=== PATIENT | female | born 1995 | race Hispanic/Latino ===

== ENCOUNTER 2017-02-18 11:00 | Emergency (ER) | payer OTHER ==
[~2017-02-18] VITALS: Ht 160 cm; Wt 109.0 kg
[~2017-02-18 11:00] MED LIST: CEPHALEXIN500 MG PO; CLINDAMAX1 % EX; DENIES CURRENT MEDS; IBUPROFEN600 MG PO; KEFLEX500 M1 PO; LEVOTHYROXIN50 MCG PO; NAPROSYN500 MG PO; NO; NO HOME MEDS PER MOM; OB COMPLETE/DHA PO; PATADAY OU; RETIN-A MICR0.04 % EX; RETIN-A MICR0.04 % TOP; ROBITUSSIN AC10 ML PO; SPRINTEC 2828 DAY PO; ZOFRAN ODT4 MG PO; ZOFRAN4 MG/TAB PO; [UNRECOGNIZED DRUG - CODE] TOP
[2017-02-18 11:47] LABS: HEMATOCRIT 41.2 % (37.0-47.0); HEMOGLOBIN 12.9 g/dl (12.0-16.0); IMMATURE GRANULOCYTES 0.5 % (0.0-1.0); MEAN CORPUSCULAR HGB 24.1 pG CALC (26.0-32.0); MEAN CORPUSCULAR HGB CONC 31.3 g/L CALC (32.0-36.0); NEUT# 11.37 thou/uL (2.00-7.15); RED BLOOD COUNT 5.35 mill/uL (4.20-5.60)
[2017-02-18 11:48] LABS: URINE BILIRUBIN - DIPSTICK NEGATIVE (NEGATIVE); URINE BLOOD DIPSTICK NEGATIVE (NEGATIVE); URINE CLARITY CLEAR; URINE COLOR YELLOW; URINE GLUCOSE - DIPSTICK NEGATIVE (NEGATIVE); URINE KETONE NEGATIVE (NEGATIVE); URINE LEUK ESTERASE TRACE (NEGATIVE); URINE NITRITE - DIPSTICK NEGATIVE (Negative); URINE PH 5.5 (4.5-8.0); URINE PROTEIN - DIPSTICK NEGATIVE (NEG-TRACE); URINE UROBILINOGEN - DIPSTICK 0.2 E.U./dL (0.2)
[2017-02-18 11:57] LABS: ALBUMIN 4.6 g/dL (3.2-5.0); ALKALINE PHOSPHATASE 86 u/l (38-126); AMYLASE 40 u/l (30-110); ANION GAP 16 (6-22 (CALC)); BILIRUBIN, TOTAL 0.5 mg/dL (0.0-1.4); BUN 10 mg/dL (7-17); BUN/CREATININE RATIO 17 (12-20 (CALC)); CALCIUM 9.6 mg/dL (8.4-10.2); CARBON DIOXIDE 25 mmol/l (22-30); CHLORIDE 103 mmol/l (95-108); CREATININE 0.6 mg/dL (0.5-1.0); GFR > 60 ML/MIN (>=60 (CALC)); GFR FOR AFR.AMER. > 60 ML/MIN (>=60 (CALC)); GLUCOSE 87 mg/dL (65-105); LIPASE 73 u/l (23-300); POTASSIUM 4.1 mmol/l (3.5-5.1); SGOT/AST 26 u/l (14-36); SGPT/ALT 46 u/l (9-52); SODIUM 141 mmol/l (137-146); TOTAL PROTEIN 8.3 g/dL (6.3-8.2)
[2017-02-18] MEDS ORDERED: BACTRIM DS1 TAB PO (16:27)
[2017-02-18] MEDS ORDERED: MOTRIN800 MG PO (16:27)
[2017-02-18] MEDS ORDERED: DOXYCYCL HYC100 MG PO (16:28)
[2017-02-18 16:45] VITALS: BP 106/74
== END 2017-02-18 16:45 | disposition home or self-care (01) | DRG 392 ==
LOC: ED 11:00
PROVIDERS: Emergency Medicine
DX: R10.30 Lower abdominal pain, unspecified (principal); R50.9 Fever, unspecified; R19.7 Diarrhea, unspecified; R11.0 Nausea

== ENCOUNTER 2017-07-10 12:43 | Emergency (ER) | payer OTHER ==
[~2017-07-10] VITALS: Ht 160 cm; Wt 118.0 kg
[~2017-07-10 12:43] MED LIST changes: +BACTRIM DS1 TAB PO; +DOXYCYCL HYC100 MG PO; +MOTRIN800 MG PO
[2017-07-10] MEDS ORDERED: CEPHALEXIN500 M1 PO (13:10)
[2017-07-10] MEDS ORDERED: AMOXICILLIN500 MG PO (13:12)
[2017-07-10 13:15] VITALS: BP 167/77
== END 2017-07-10 13:15 | disposition home or self-care (01) | DRG 153 ==
LOC: ED 12:43
DX: H66.92 Otitis media, unspecified, left ear (principal); H92.02 Otalgia, left ear; Z33.1 Pregnant state, incidental

== ENCOUNTER 2017-07-24 12:21 | Emergency (ER) | payer OTHER ==
[~2017-07-24] VITALS: Ht 160 cm; Wt 113.0 kg
[~2017-07-24 12:21] MED LIST changes: +AMOXICILLIN500 MG PO; +CEPHALEXIN500 M1 PO
[2017-07-24 14:00] VITALS: BP 119/69
== END 2017-07-24 14:05 | disposition home or self-care (01) | DRG 781 ==
LOC: ED 12:21
DX: O26.891 Other specified pregnancy related conditions, first trimester (principal); M54.5 Low back pain; S20.211A Contusion of right front wall of thorax, initial encounter; Z3A.08 8 weeks gestation of pregnancy; W01.0XXA Fall on same level from slipping, tripping and stumbling without subsequent striking against object, initial encounter; Y92.009 Unspecified place in unspecified non-institutional (private) residence as the place of occurrence of the external cause

== ENCOUNTER 2017-11-29 19:18 | Emergency (ER) | payer OTHER ==
[~2017-11-29] VITALS: Ht 162.6 cm; Wt 101.0 kg
[~2017-11-29 19:18] MED LIST changes: +DIFLUCAN150 MG PO; +KEFLEX500 MG PO; +PRENATA3 PO
[2017-11-29 19:39] LABS: URINE BLOOD DIPSTICK NEGATIVE (NEGATIVE); URINE GLUCOSE - DIPSTICK NEGATIVE (NEGATIVE); URINE KETONE TRACE mg/dL (NEGATIVE); URINE LEUK ESTERASE TRACE (NEGATIVE); URINE NITRITE - DIPSTICK NEGATIVE (Negative); URINE PROTEIN - DIPSTICK 30 mg/dL (NEG-TRACE); URINE SPECIFIC GRAVITY >=1.030
[2017-11-29 19:41] LABS: URINE BILIRUBIN - DIPSTICK NEGATIVE (NEGATIVE); URINE CLARITY CLEAR; URINE COLOR DK. YELLOW
[2017-11-29 19:48] LABS: URINE SQUAMOUS EPITHELIAL CELL FEW EPI/hpf (0-FEW)
[2017-11-29] MEDS ORDERED: MACRODANTIN100 MG PO (20:10)
[2017-11-29 20:32] VITALS: BP 106/61
== END 2017-11-29 20:30 | disposition home or self-care (01) | DRG 781 ==
LOC: ED 19:18
PROVIDERS: Emergency Medicine
DX: O23.92 Unspecified genitourinary tract infection in pregnancy, second trimester (principal); Z3A.27 27 weeks gestation of pregnancy

== ENCOUNTER 2017-12-16 20:08 | Emergency (ER) | payer OTHER ==
[~2017-12-16] VITALS: Ht 162.6 cm; Wt 148.6 kg
[~2017-12-16 20:08] MED LIST changes: +MACRODANTIN100 MG PO
[2017-12-16 21:29] LABS: INFLUENZA A NONE DETECTED (NONE DETECT); INFLUENZA B NONE DETECTED (NONE DETECT)
[2017-12-16] MEDS ORDERED: AMOXICILLIN500 MG PO (21:35)
[2017-12-16 21:56] VITALS: BP 147/75
== END 2017-12-16 21:58 | disposition home or self-care (01) | DRG 781 ==
LOC: ED 20:08
PROVIDERS: Emergency Medicine
DX: O99.513 Diseases of the respiratory system complicating pregnancy, third trimester (principal); J02.9 Acute pharyngitis, unspecified; H66.92 Otitis media, unspecified, left ear; Z3A.30 30 weeks gestation of pregnancy

== ENCOUNTER 2018-01-13 11:27 | Emergency (ER) | payer OTHER ==
[~2018-01-13] VITALS: Ht 162.6 cm; Wt 148.0 kg
[2018-01-13 13:23] VITALS: BP 119/60
== END 2018-01-13 13:34 | disposition home or self-care (01) | DRG 951 ==
LOC: ED 11:27
DX: Z34.93 Encounter for supervision of normal pregnancy, unspecified, third trimester (principal)

== ENCOUNTER 2018-08-23 20:15 | Emergency (ER) | payer OTHER ==
[~2018-08-23] VITALS: Ht 162.6 cm; Wt 130.0 kg
[2018-08-23 22:02] LABS: INFLUENZA A NONE DETECTED (NONE DETECT)
[2018-08-23 22:03] LABS: INFLUENZA B POSITIVE (NONE DETECT)
[2018-08-23] MEDS ORDERED: AMOXICILLIN500 MG PO (22:05)
[2018-08-23] MEDS ORDERED: TAM75CAP PO (22:05)
[2018-08-23 22:22] VITALS: BP 156/77
== END 2018-08-23 22:30 | disposition home or self-care (01) ==
LOC: ED 20:15
PROVIDERS: Emergency Medicine
DX: J11.1 Influenza due to unidentified influenza virus with other respiratory manifestations (principal); J02.0 Streptococcal pharyngitis; R05 Cough; H92.02 Otalgia, left ear

== ENCOUNTER 2018-11-03 10:04 | Emergency (ER) | payer OTHER ==
[~2018-11-03] VITALS: Ht 162.6 cm; Wt 100.0 kg
[~2018-11-03 10:04] MED LIST changes: +TAM75CAP PO
[2018-11-03] MEDS ORDERED: CORTISPORIN OTI10 ML AS (10:47)
[2018-11-03] MEDS ORDERED: CIPROFLOXACN500 MG PO (10:47)
[2018-11-03 10:50] VITALS: BP 142/102
== END 2018-11-03 11:13 | disposition home or self-care (01) ==
LOC: ED 10:04
DX: H66.92 Otitis media, unspecified, left ear (principal)

== ENCOUNTER 2018-12-04 20:01 | Emergency (ER) | payer SELFPAY ==
[~2018-12-04] VITALS: Ht 162.6 cm; Wt 109.1 kg
[~2018-12-04 20:01] MED LIST changes: +CIPROFLOXACN500 MG PO; +CORTISPORIN OTI10 ML AS
[2018-12-04 20:07] VITALS: BP 117/72
[2018-12-04 20:49] LABS: URINE BILIRUBIN - DIPSTICK NEGATIVE (NEGATIVE); URINE BLOOD DIPSTICK NEGATIVE (NEGATIVE); URINE COLOR YELLOW; URINE GLUCOSE - DIPSTICK NEGATIVE (NEGATIVE); URINE KETONE NEGATIVE (NEGATIVE); URINE LEUK ESTERASE NEGATIVE (NEGATIVE); URINE NITRITE - DIPSTICK NEGATIVE (Negative); URINE PROTEIN - DIPSTICK NEGATIVE (NEG-TRACE); URINE SPECIFIC GRAVITY >=1.030; URINE UROBILINOGEN - DIPSTICK 0.2 E.U./dL (0.2)
[2018-12-04] MEDS ORDERED: AMOXICILLIN875 MG PO (21:08)
== END 2018-12-04 21:26 | disposition home or self-care (01) ==
LOC: ED 20:01
DX: J02.9 Acute pharyngitis, unspecified (principal); R50.9 Fever, unspecified; R10.2 Pelvic and perineal pain; R51 Headache

== ENCOUNTER 2019-01-16 20:44 | Emergency (ER) | payer OTHER ==
[~2019-01-16] VITALS: Ht 162.6 cm; Wt 152.4 kg
[~2019-01-16 20:44] MED LIST changes: +AMOXICILLIN875 MG PO
[2019-01-16 21:46] LABS: URINE BILIRUBIN - DIPSTICK NEGATIVE (NEGATIVE); URINE BLOOD DIPSTICK LARGE (NEGATIVE); URINE COLOR YELLOW; URINE GLUCOSE - DIPSTICK NEGATIVE (NEGATIVE); URINE KETONE NEGATIVE (NEGATIVE); URINE LEUK ESTERASE NEGATIVE (NEGATIVE); URINE NITRITE - DIPSTICK NEGATIVE (Negative); URINE PROTEIN - DIPSTICK NEGATIVE (NEG-TRACE); URINE UROBILINOGEN - DIPSTICK 0.2 E.U./dL (0.2)
[2019-01-16] MEDS ORDERED: CEPHALEXIN500 M1 PO (21:56)
[2019-01-16] MEDS ORDERED: BACTRIM DS1 TAB PO (21:56)
[2019-01-16] MEDS ORDERED: ULTRAM50 M1 PO (21:56)
[2019-01-16 22:05] LABS: URINE SQUAMOUS EPITHELIAL CELL FEW EPI/hpf (0-FEW); URINE WBC 0-2 WBC/hpf (0-5)
[2019-01-16 22:10] VITALS: BP 127/88
== END 2019-01-16 22:10 | disposition home or self-care (01) ==
LOC: ED 20:44
PROVIDERS: Emergency Medicine
DX: L02.415 Cutaneous abscess of right lower limb (principal); R50.9 Fever, unspecified

== ENCOUNTER 2019-01-17 19:25 | Emergency (ER) | payer OTHER ==
[~2019-01-17] VITALS: Ht 162.6 cm; Wt 118.8 kg
[~2019-01-17 19:25] MED LIST changes: +ULTRAM50 M1 PO
[2019-01-17 20:17] VITALS: BP 126/83
== END 2019-01-17 20:16 | disposition home or self-care (01) ==
LOC: ED 19:25
DX: L02.415 Cutaneous abscess of right lower limb (principal)

== ENCOUNTER 2019-01-20 18:30 | Emergency (ER) | payer OTHER ==
[~2019-01-20] VITALS: Ht 162.6 cm; Wt 118.0 kg
[2019-01-20 19:35] LABS: URINE BILIRUBIN - DIPSTICK NEGATIVE (NEGATIVE); URINE BLOOD DIPSTICK LARGE (NEGATIVE); URINE COLOR YELLOW; URINE GLUCOSE - DIPSTICK NEGATIVE (NEGATIVE); URINE KETONE NEGATIVE (NEGATIVE); URINE LEUK ESTERASE TRACE (NEGATIVE); URINE NITRITE - DIPSTICK NEGATIVE (Negative); URINE PROTEIN - DIPSTICK TRACE mg/dL (NEG-TRACE); URINE SPECIFIC GRAVITY >=1.030; URINE UROBILINOGEN - DIPSTICK 0.2 E.U./dL (0.2)
[2019-01-20 19:36] LABS: IMMATURE GRANULOCYTES 0.4 % (0.0-5.0); MEAN CELL VOLUME 82.6 fL CALC (80.0-100.0); MEAN CORPUSCULAR HGB 25.8 pG CALC (26.0-32.0); MEAN CORPUSCULAR HGB CONC 31.3 g/L CALC (32.0-36.0); NEUT# 4.91 thou/uL (2.00-7.15); RED BLOOD COUNT 5.3 mill/uL (4.20-5.60); RED CELL DISTRI WIDTH 14.6 % (11.5-15.5)
[2019-01-20 19:46] LABS: HEMATOCRIT 43.8 % (37.0-47.0); HEMOGLOBIN 13.7 g/dl (12.0-16.0)
[2019-01-20 19:52] LABS: ALBUMIN 4.6 g/dL (3.2-5.0); ALKALINE PHOSPHATASE 84 u/l (38-126); AMYLASE 35 u/l (30-110); ANION GAP 15 (6-22 (CALC)); BILIRUBIN, TOTAL 0.4 mg/dL (0.0-1.4); BUN 9 mg/dL (7-17); BUN/CREATININE RATIO 13 (12-20 (CALC)); CARBON DIOXIDE 25 mmol/l (22-30); CHLORIDE 104 mmol/l (95-108); CREATININE 0.7 mg/dL (0.5-1.0); GFR > 60 ML/MIN (>=60 (CALC)); GFR FOR AFR.AMER. > 60 ML/MIN (>=60 (CALC)); LIPASE 48 u/l (23-300); POTASSIUM 4.2 mmol/l (3.5-5.1); SGOT/AST 33 u/l (14-36); SODIUM 140 mmol/l (137-146); TOTAL PROTEIN 7.9 g/dL (6.3-8.2)
[2019-01-20 20:01] LABS: URINE RBC TNTC RBC/hpf (0-5); URINE SQUAMOUS EPITHELIAL CELL FEW EPI/hpf (0-FEW)
[2019-01-20] MEDS ORDERED: PHENERGAN25 MG/TAB PO (20:11)
[2019-01-20 20:42] VITALS: BP 127/87
== END 2019-01-20 20:42 | disposition home or self-care (01) ==
LOC: ED 18:30
PROVIDERS: Family Medicine
DX: A08.4 Viral intestinal infection, unspecified (principal); R11.2 Nausea with vomiting, unspecified

== ENCOUNTER 2019-02-18 12:23 | Emergency (ER) | payer OTHER ==
[~2019-02-18] VITALS: Ht 162.6 cm; Wt 79.0 kg
[~2019-02-18 12:23] MED LIST changes: +PHENERGAN25 MG/TAB PO
[2019-02-18 13:19] LABS: HEMATOCRIT 45.2 % (37.0-47.0); HEMOGLOBIN 14.6 g/dl (12.0-16.0); IMMATURE GRANULOCYTES 0.5 % (0.0-5.0); MEAN CELL VOLUME 82.3 fL CALC (80.0-100.0); MEAN CORPUSCULAR HGB 26.6 pG CALC (26.0-32.0); MEAN CORPUSCULAR HGB CONC 32.3 g/L CALC (32.0-36.0); NEUT# 9.05 thou/uL (2.00-7.15); RED BLOOD COUNT 5.49 mill/uL (4.20-5.60); RED CELL DISTRI WIDTH 14.9 % (11.5-15.5)
[2019-02-18 13:24] LABS: URINE BILIRUBIN - DIPSTICK NEGATIVE (NEGATIVE); URINE BLOOD DIPSTICK TRACE-INTACT (NEGATIVE); URINE COLOR YELLOW; URINE GLUCOSE - DIPSTICK NEGATIVE (NEGATIVE); URINE KETONE NEGATIVE (NEGATIVE); URINE NITRITE - DIPSTICK NEGATIVE (Negative); URINE PH 5.5 (4.5-8.0); URINE PROTEIN - DIPSTICK TRACE mg/dL (NEG-TRACE); URINE SPECIFIC GRAVITY >=1.030; URINE UROBILINOGEN - DIPSTICK 0.2 E.U./dL (0.2)
[2019-02-18 13:26] LABS: URINE LEUK ESTERASE SMALL (NEGATIVE)
[2019-02-18 13:33] LABS: ALBUMIN 5.1 g/dL (3.2-5.0); ALKALINE PHOSPHATASE 83 u/l (38-126); ANION GAP 18 (6-22 (CALC)); BILIRUBIN, TOTAL 0.7 mg/dL (0.0-1.4); BUN 10 mg/dL (7-17); BUN/CREATININE RATIO 15 (12-20 (CALC)); CARBON DIOXIDE 20 mmol/l (22-30); CHLORIDE 105 mmol/l (95-108); CREATININE 0.6 mg/dL (0.5-1.0); GFR > 60 ML/MIN (>=60 (CALC)); GFR FOR AFR.AMER. > 60 ML/MIN (>=60 (CALC)); LIPASE 50 u/l (23-300); SGOT/AST 31 u/l (14-36); SODIUM 140 mmol/l (137-146); TOTAL PROTEIN 8.7 g/dL (6.3-8.2)
[2019-02-18 13:40] LABS: URINE BACTERIA FEW hpf; URINE SQUAMOUS EPITHELIAL CELL FEW EPI/hpf (0-FEW); URINE WBC 20-50 WBC/hpf (0-5)
[2019-02-18 14:15] LABS: C. DIFFICILE TOXIN A&B NEGATIVE (NEGATIVE)
[2019-02-18] MEDS ORDERED: PYRIDIUM200 MG PO (15:17)
[2019-02-18] MEDS ORDERED: KEFLEX500 M1 PO (15:17)
[2019-02-18] MEDS ORDERED: ZOFRAN4 MG/TAB PO (15:19)
[2019-02-18 15:35] VITALS: BP 119/57
== END 2019-02-18 15:35 | disposition home or self-care (01) ==
LOC: ED 12:23
DX: N39.0 Urinary tract infection, site not specified (principal); R19.7 Diarrhea, unspecified; R11.0 Nausea; R50.9 Fever, unspecified; R10.2 Pelvic and perineal pain

== ENCOUNTER 2019-06-09 11:53 | Emergency (ER) | payer OTHER ==
[~2019-06-09] VITALS: Ht 162.6 cm; Wt 155.0 kg
[~2019-06-09 11:53] MED LIST changes: +PYRIDIUM200 MG PO
[2019-06-09 12:18] LABS: URINE BILIRUBIN - DIPSTICK NEGATIVE (NEGATIVE); URINE BLOOD DIPSTICK NEGATIVE (NEGATIVE); URINE COLOR YELLOW; URINE GLUCOSE - DIPSTICK NEGATIVE (NEGATIVE); URINE KETONE NEGATIVE (NEGATIVE); URINE NITRITE - DIPSTICK NEGATIVE (Negative); URINE PH 6.5 (4.5-8.0); URINE PROTEIN - DIPSTICK NEGATIVE (NEG-TRACE); URINE SPECIFIC GRAVITY <=1.005; URINE UROBILINOGEN - DIPSTICK 0.2 E.U./dL (0.2)
[2019-06-09 12:19] LABS: URINE LEUK ESTERASE MODERATE (NEGATIVE)
[2019-06-09 12:30] LABS: URINE BACTERIA FEW hpf; URINE SQUAMOUS EPITHELIAL CELL FEW EPI/hpf (0-FEW); URINE WBC TNTC WBC/hpf (0-5)
[2019-06-09] MEDS ORDERED: BACTRIM DS1 TAB PO (12:54)
[2019-06-09] MEDS ORDERED: IBUPROFEN600 MG PO (12:55)
[2019-06-09 13:00] VITALS: BP 112/75
== END 2019-06-09 13:00 | disposition home or self-care (01) ==
LOC: ED 11:53
DX: N39.0 Urinary tract infection, site not specified (principal); M54.5 Low back pain

== ENCOUNTER 2019-06-26 09:10 | Emergency (ER) | payer OTHER ==
[~2019-06-26] VITALS: Ht 162.6 cm; Wt 120.0 kg
[2019-06-26] MEDS ORDERED: AMOX/K CLAV875 M1 PO (11:24)
[2019-06-26 11:47] VITALS: BP 135/77
== END 2019-06-26 11:47 | disposition home or self-care (01) ==
LOC: ED 09:10
DX: J32.9 Chronic sinusitis, unspecified (principal); J02.9 Acute pharyngitis, unspecified

== ENCOUNTER 2020-01-28 | Emergency (ER) | payer MEDICAID ==
[~2020-01-28] MED LIST changes: +AMOX/K CLAV875 M1 PO
[2020-01-29 00:29] LABS: URINE BILIRUBIN - DIPSTICK NEGATIVE (NEGATIVE); URINE BLOOD DIPSTICK NEGATIVE (NEGATIVE); URINE COLOR YELLOW; URINE GLUCOSE - DIPSTICK NEGATIVE (NEGATIVE); URINE KETONE NEGATIVE (NEGATIVE); URINE LEUK ESTERASE TRACE (NEGATIVE); URINE NITRITE - DIPSTICK NEGATIVE (Negative); URINE PROTEIN - DIPSTICK NEGATIVE (NEG-TRACE); URINE SPECIFIC GRAVITY 1.025; URINE UROBILINOGEN - DIPSTICK 0.2 E.U./dL (0.2)
== END 2020-01-29 00:48 | disposition home or self-care (01) ==
DX: N94.6 Dysmenorrhea, unspecified (principal); Z97.5 Presence of (intrauterine) contraceptive device

== ENCOUNTER 2021-04-21 14:36 | Emergency (ER) | payer MEDICAID ==
[~2021-04-21] VITALS: Ht 162.6 cm; Wt 162.9 kg
[2021-04-21 15:23] LABS: URINE BILIRUBIN - DIPSTICK NEGATIVE (NEGATIVE); URINE BLOOD DIPSTICK NEGATIVE (NEGATIVE); URINE COLOR YELLOW; URINE GLUCOSE - DIPSTICK NEGATIVE (NEGATIVE); URINE KETONE NEGATIVE (NEGATIVE); URINE PROTEIN - DIPSTICK NEGATIVE (NEG-TRACE); URINE SPECIFIC GRAVITY 1.025; URINE UROBILINOGEN - DIPSTICK 0.2 E.U./dL (0.2)
[2021-04-21 15:29] LABS: URINE LEUK ESTERASE SMALL (NEGATIVE); URINE NITRITE - DIPSTICK NEGATIVE (Negative)
[2021-04-21 15:31] LABS: IMMATURE GRANULOCYTES 0.4 % (0.0-5.0); MEAN CELL VOLUME 87.1 fL CALC (80.0-100.0); MEAN CORPUSCULAR HGB 28.2 pG CALC (26.0-32.0); MEAN CORPUSCULAR HGB CONC 32.3 g/dL CAL (32.0-36.0); NEUT# 5.33 thou/uL (2.00-7.15); RED BLOOD COUNT 5.36 mill/uL (4.20-5.60); RED CELL DISTRI WIDTH 13.1 % (11.5-15.5)
[2021-04-21 15:34] LABS: HEMATOCRIT 46.7 % (37.0-47.0); HEMOGLOBIN 15.1 g/dl (12.0-16.0)
[2021-04-21 15:37] LABS: URINE RBC 0-2 RBC/hpf (0-5); URINE SQUAMOUS EPITHELIAL CELL MODERATE EPI/hpf (0-FEW)
[2021-04-21 15:39] LABS: ALBUMIN 4.5 g/dL (3.2-5.0); ALKALINE PHOSPHATASE 63 u/l (38-126); ANION GAP 13 (6-22 (CALC)); BILIRUBIN, TOTAL 0.4 mg/dL (0.0-1.4); BUN 12 mg/dL (7-17); BUN/CREATININE RATIO 16 (12-20 (CALC)); CARBON DIOXIDE 28 mmol/l (22-30); CHLORIDE 100 mmol/l (95-108); CREATININE 0.7 mg/dL (0.5-1.0); GFR > 60 ML/MIN (>=60 (CALC)); GFR FOR AFR.AMER. > 60 ML/MIN (>=60 (CALC)); SGOT/AST 34 u/l (14-36); SODIUM 136 mmol/l (137-146)
[2021-04-21 15:51] LABS: MYOGLOBIN 16 ng/mL (0 - 62)
[2021-04-21 15:52] LABS: TOTAL PROTEIN 8.6 g/dL (6.3-8.2)
[2021-04-21] MEDS ORDERED: MECLIZINE25 MG PO (17:10)
[2021-04-21] MEDS ORDERED: KEFLEX500 MG PO (17:10)
[2021-04-21 17:49] VITALS: BP 105/77
== END 2021-04-21 17:49 | disposition home or self-care (01) ==
LOC: ED 14:36
PROVIDERS: Emergency Medicine
DX: R42 Dizziness and giddiness (principal); N39.0 Urinary tract infection, site not specified

== ENCOUNTER 2021-07-31 05:00 | Emergency (ER) | payer MEDICAID ==
[~2021-07-31] VITALS: Ht 165.1 cm; Wt 166.0 kg
[~2021-07-31 05:00] MED LIST changes: +MECLIZINE25 MG PO
[2021-07-31] MEDS ORDERED: CORTISPORIN OTI10 M2 AD (05:28)
[2021-07-31 05:30] VITALS: BP 135/83
== END 2021-07-31 05:37 | disposition home or self-care (01) ==
LOC: ED 05:00
DX: H60.91 Unspecified otitis externa, right ear (principal)

== ENCOUNTER 2024-06-02 16:07 | Emergency (ER) | payer SELFPAY ==
[~2024-06-02] VITALS: Ht 165.1 cm; Wt 142.0 kg
[~2024-06-02 16:07] MED LIST changes: +CORTISPORIN OTI10 M2 AD; +METHOCARBAMOL500 MG PO; +NEOSPORIN3.5 G1 TOP
[2024-06-02] MEDS ORDERED: NEOMYCIN-BACITRACIN-POLYMYXIN 0.5 GM/PAK PAK TOP ONE (17:45)
[2024-06-02 18:02] VITALS: BP 137/94
== END 2024-06-02 17:56 | disposition home or self-care (01) | DRG 605 ==
LOC: ED 16:07
PROC: 0HQGXZZ Repair Left Hand Skin, External Approach (ICD-10-PCS; principal; 2024-06-02)
DX: S61.213A Laceration without foreign body of left middle finger without damage to nail, initial encounter (principal); W26.8XXA Contact with other sharp object(s), not elsewhere classified, initial encounter

== ENCOUNTER 2024-06-12 20:20 | Emergency (ER) | payer SELFPAY ==
[~2024-06-12] VITALS: Ht 165.1 cm; Wt 143.0 kg
[2024-06-12 23:22] VITALS: BP 133/86
== END 2024-06-12 23:23 | disposition home or self-care (01) | DRG 950 ==
LOC: ED 20:20
DX: S61.213D Laceration without foreign body of left middle finger without damage to nail, subsequent encounter (principal); X58.XXXD Exposure to other specified factors, subsequent encounter